=== PATIENT | male | born 1990 | race Caucasian/White ===

== ENCOUNTER 2020-09-26 02:46 | Emergency (ER) | payer MEDICAID, SELFPAY ==
[~2020-09-26] VITALS: Ht 182.9 cm; Wt 122.5 kg
[2020-09-26 02:46] VITALS: BP_SYST 160
--- NOTE | 2020-09-26 02:46 | NUR ---
Patient to ER bed 6 to gown for evaluation. Side rails up. Report given to JOB Conte.
--- NOTE | 2020-09-26 02:57 | NUR ---
Wesley padilla in ED - 09/26/20 at 0257 by ENE Patient to ER bed 6 to eleuterio for evaluation. Side rails up. Report given to Dg
--- NOTE | 2020-09-26 03:15 | NUR ---
Pt BIB family to ED C/O " COVID like " symptoms, feeling like it's getting worse. current O2 sat on room air at 99%. VSS no s/s of acute distress Resting on gurney rails up
--- NOTE | 2020-09-26 03:30 | NUR ---
Dr. Braga bedside for pt eval
[2020-09-26] MEDS ORDERED: IPRATROPIUM/ALBUTEROL SULFATE 3 ML AMPUL.NEB (DUONEB) INH ONE (04:00)
--- NOTE | 2020-09-26 04:25 | NUR ---
VSS no s/s of acute distress Resting on gurney
[2020-09-26 04:35] LABS: BASOPHILS % (AUTO) 0.4 % (0.0-2.0); EOSINOPHILS # (AUTO) 0.6 K/uL (0.0-0.4); EOSINOPHILS % (AUTO) 4.6 % (0.0-4.0); HEMOGLOBIN 13.7 g/dL (14.0-18.0); LYMPHOCYTES # (AUTO) 1.7 K/uL (1.0-5.5); LYMPHOCYTES % (AUTO) 14.1 % (20.5-51.5); MEAN CORPUSCULAR HEMOGLOBIN 29 pg (27-31); MEAN CORPUSCULAR HGB CONC 34 % (32-36); MEAN CORPUSCULAR VOLUME 83 fL (79.0-98.0); MONOCYTES # (AUTO) 0.9 K/uL (0.0-1.0); MONOCYTES % (AUTO) 7.1 % (1.7-9.3); NEUTROPHILS % (AUTO) 73.8 % (40.0-70.0); PLATELET COUNT (AUTO) 347 K/uL (130-430); RED BLOOD CELL COUNT(AUTO) 4.81 MIL/uL (4.2-6.2); RED CELL DISTRIBUTION WIDTH 13.7 % (9.0-15.0); WHITE BLOOD COUNT (AUTO) 12.2 K/uL (4.8-10.8)
[2020-09-26 05:09] LABS: ANION GAP 8 (5-15); CHLORIDE 104 mmol/L (98-107); GLUCOSE 110 mg/dL (70-99); POTASSIUM 3.9 mmol/L (3.5-5.1); SODIUM SERUM 140 mmol/L (136-145)
[2020-09-26 05:10] LABS: ALANINE AMINOTRANSFERASE 36 U/L (12-78); ALBUMIN 3.7 g/dL (3.4-4.8); ASPARTATE AMINOTRANSFERASE 20 U/L (10-37); CALCIUM 8.8 mg/dL (8.4-11.0); CREATININE 0.77 mg/dL (0.55-1.30); GFR AFRICAN AMERICAN 155 mL/min (>90); TOTAL BILIRUBIN 0.4 mg/dL (0.0-1.0); UREA NITROGEN, BLOOD 6 mg/dL (8-21)
--- NOTE | 2020-09-26 05:14 | NUR ---
Dr. Braga bedside for pt update
[2020-09-26] MEDS ORDERED: methylPREDNISolone SOD SUCC/PF 62.5 MG/ML VIAL IM ONE (05:45)
--- NOTE | 2020-09-26 06:07 | NUR ---
Dr. Braga bedside for pt Q&A and update
[2020-09-26 06:20] VITALS: BP_SYST 122
--- NOTE | 2020-09-26 06:20 | NUR ---
Patient given written and verbal discharge instructions and verbalizes understanding. ER MD discussed with patient the results and treatment provided. Patient in stable condition. ID arm band removed. Patient educated on pain management and to follow up with PMD. Pain Scale 0/10 Opportunity for questions provided and answered.
== END 2020-09-26 06:20 | disposition home or self-care (01) ==
LOC: SED 02:46
DX: J98.01 Acute bronchospasm (principal); Z88.6 Allergy status to analgesic agent; Z20.822 Contact with and (suspected) exposure to COVID-19
CPT/HCPCS: 36415; 71045; 80053; 83880; 84484; 85025; 85379; 87426; 93005; 96372; 99285; J2930